=== PATIENT | female | born 1965 | race Caucasian/White ===

== ENCOUNTER 2016-12-17 20:10 | Emergency (ER) | payer OTHER, MEDICAID ==
[2016-12-18 03:45] VITALS: BP 115/77
== END 2016-12-18 03:45 ==
LOC: ED 20:10
DX: F31.9 Bipolar disorder, unspecified (principal); F91.9 Conduct disorder, unspecified; I10 Essential (primary) hypertension
CPT/HCPCS: 82962; J7030

== ENCOUNTER 2016-12-20 12:44 | Emergency (ER) | payer OTHER, MEDICAID ==
[~2016-12-20] VITALS: Ht 162.6 cm; Wt 65.8 kg
[2016-12-20 13:24] LABS: BASOPHIL % 0.4 % (0-2); PLATELET COUNT 290 x10^3mcL (130-400); RED CELL DISTRIBUTION WIDTH 13.6 % (11.5-14.5)
[2016-12-20 13:35] LABS: CALCIUM 9.6 mg/dL (8.5-10.1); CARBON DIOXIDE 25.7 mmol/L (21-32); CHLORIDE SERUM 103 mmol/L (98-107); CREATININE SERUM 0.6 mg/dL (0.6-1.0); GFR1 > 60 mL/min; GLUCOSE SERUM 99 mg/dL (74-106); POTASSIUM SERUM 3.4 mmol/L (3.5-5.1); SODIUM SERUM 140 mmol/L (136-145)
[2016-12-20 13:40] LABS: ALBUMIN 3.7 g/dL (3.4-5.0); ALKALINE PHOSPHATASE 101 U/L (46-116); ALT/SGPT 75 U/L (14-59); AST/SGOT 27 U/L (15-37); BILIRUBIN TOTAL 2.99 mg/dL (0.20-1.00); CHOLESTEROL 170 mg/dL (<200)
[2016-12-20 14:07] LABS: AMPHETAMINE QUAL UR NONE DETECTED (NEG <=1000)
[2016-12-20 18:06] VITALS: BP 114/74
== END 2016-12-20 18:07 | disposition home or self-care (01) ==
LOC: ED 12:44
PROVIDERS: Emergency Medicine
DX: R53.1 Weakness (principal); F31.9 Bipolar disorder, unspecified; E86.0 Dehydration; F20.9 Schizophrenia, unspecified
CPT/HCPCS: 80307; 83880; G0480; J7030; Q0092